=== PATIENT | female | born 1955 | race Caucasian/White ===

== ENCOUNTER → 2016-11-27 | Outpatient (CLI) | payer BC ==
[~2016-11-27] MED LIST: CYCLOBENZAPRINE10 M1 PO; DICLOFENAC SOD100 M2 PO; FLUOXETINE HCL40 MG PO; LEVOTHYROXIN0.075 M1 PO
--- NOTE | 2016-12-03 10:54 | RADIOLOGY REPORT PS360 ---
DIG DIG MAMM-SCREEN [place] W/CAD CAD Screening ORDERING PHYSICIAN : José Luis Aquino MD PATIENT AGE: 61 years GENDER: Female COMPARISON: Previous mammograms: October 2015, 2014 2013 INDICATION: Routine screening 61-year-old. Patient states On and off activella 8 months Previous stereotactic biopsies both right and left breast. Family history. Maternal aunt with breast cancer TECHNIQUE: Standard CC and MLO images were obtained. R2 CAD reviewed. FINDINGS: Moderately dense mildly inhomogeneous breast tissue bilaterally.. Slightly decreases sensitivity of mammography RIGHT BREAST: 2 percutaneous biopsy sites markers noted on right Metallic marker from percutaneous biopsy at lateral/upper-outer quadrant right breast. Minimal focal density posterior to this marker initial cc view seems to dissipate on subsequent axillary cc image.-But given its slightly stellate appearance on this initial cc view I would encourage a 6 month follow-up to confirm stability The metallic marker(hat shape) at the medial retroareolar region is again seen and appear satisfactory. Unremarkable LEFT BREAST: Metallic marker medial left breast from previous percutaneous biopsy. No new findings left breast. Minimal nodularity superiorly is stable. Follow-up left mammogram 1 year IMPRESSION: Right breast. Subtle focal with slight irregular appearance lateral breast on initial cc view- just posterior metallic marker upper outer quadrant., most likely summation shadow along with scarring.. Seen on cc view but appears to dissipates on other views and thus doubt of significance. Nonetheless cautious a follow-up right mammogram in 6 months suggested to confirm stability of this likely summation shadow density. Left breast Stable appearance. Follow-up in one year. BI-RADS CATEGORY: 3_Probably Benign-Short Term F/URight breast RECOMMENDED FOLLOWUP: 6M 6MONTH FOLLOW-UP (A letter has been sent to the patient regarding results of the study.)
== END ==
LOC: RAD 15:37
DX: Z12.31 Encounter for screening mammogram for malignant neoplasm of breast (principal)
CPT/HCPCS: G0202